=== PATIENT | male | born 1965 | race Caucasian/White ===

== ENCOUNTER 2023-07-13 11:35 | Day surgery (SDC) | payer MEDICARE, MEDICAID ==
[2023-07-10 10:44] LABS: BASOPHILS % (AUTO) 0.9 % (0-1); HEMATOCRIT 41.2 % (42.0-52.0); HEMOGLOBIN 13.6 g/dl (14.0-17.9); LYMPHOCYTES # (AUTO) 1.7 X10'3 (1.1-4.8); LYMPHOCYTES % (AUTO) 39.7 % (21-51); MEAN CORPUSCULAR HEMOGLOBIN 29.9 PG (27.0-31.0); MEAN CORPUSCULAR VOLUME 90.6 FL (78-98); MEAN PLATELET VOLUME 7.8 FL (7.4-10.4); MONOCYTES # (AUTO) 0.3 X10'3 (0-0.9); MONOCYTES % (AUTO) 6.8 % (2-12); NEUTROPHILS # (AUTO) 2.2 X10'3 (1.8-7.7); NEUTROPHILS % (AUTO) 51.6 % (42-75); PLATELET COUNT 210 X10'3 (140-440); RED BLOOD COUNT 4.54 X10'6 (4.70-6.10); RED CELL DISTRIBUTION WIDTH 14.5 % (11.5-14.5); WHITE BLOOD COUNT 4.4 X10'3 (4.5-11.0)
[2023-07-10 10:49] LABS: APTT 26 SECONDS (22-32)
[2023-07-10 10:55] LABS: ALBUMIN 4.4 G/DL (3.4-5.0); ANION GAP 9 (8-16); BLOOD UREA NITROGEN 16 MG/DL (7-18); BUN/CREATININE RATIO 16.3 (10.0-20.0); CHLORIDE 104 MMOL/L (99-107); CHOL/HDL RATIO 2.4 (0.00-4.99); CHOLESTEROL 142 MG/DL (0-200); CREATININE 0.98 MG/DL (0.60-1.10); GLUCOSE 99 MG/DL (70-104); HDL CHOLESTEROL 58 MG/DL (35-60); LDL CHOLESTEROL 66 MG/DL (50-100); POTASSIUM 4.8 MMOL/L (3.5-5.1); SODIUM 141 MMOL/L (135-145); TOTAL CARBON DIOXIDE 27.9 MMOL/L (24-32); TRIGLYCERIDES 57 MG/DL (20-135); eGFR 78 ML/MIN
[2023-07-10 11:02] LABS: INR 0.9 INR
[2023-07-13] VITALS (14 sets, daily range): BP systolic 102–141; BP diastolic 42–103; PULSE 52–100; RESP 10–24; TEMP 98.4; O2SAT 93–100
[~2023-07-13] VITALS: Ht 182.9 cm; Wt 90.4 kg
[~2023-07-13 11:35] MED LIST: NO HOME MEDS
[2023-07-13] MEDS ORDERED: LISI10TA27 PO (12:55)
[2023-07-13] MEDS ORDERED: CHOL20002 PO (12:55)
[2023-07-13] MEDS ORDERED: ATOR10TA70 PO (12:55)
[2023-07-13] MEDS ORDERED: DIAZ5TAB5 PO (12:55)
[2023-07-13] MEDS ORDERED: SILD50TA53 PO (12:55)
[2023-07-13] MEDS: LORazepam 0.5 MG tablet PO PRN (13:41)
[2023-07-13] MEDS: diphenhydrAMINE 25mg capsule PO PRN (13:41)
[2023-07-13] MEDS: normal saline 1,000 ML IV SCH (13:43)
[2023-07-13] MEDS ORDERED: LIDOcaine 1% (10mg/ml) 2ml vial ONE (15:01)
[2023-07-13] MEDS ORDERED: verapamil 2.5 mg/ml inj IV ONE (15:01)
[2023-07-13] MEDS ORDERED: midazolam 1 mg/ML 2ml injection ONE (15:01)
[2023-07-13] MEDS ORDERED: iohexol 350MG/ML 100ml bottle IV ONE ×3 (15:01→16:25)
[2023-07-13] MEDS ORDERED: heparin 1,000unit/ml 10ml vial 10 ML ONE ×2 (15:01→16:17)
[2023-07-13] MEDS ORDERED: fentaNYL/PF 50MCG/1 ML 2ML syringe ONE ×2 (15:01→16:19)
[2023-07-13] MEDS ORDERED: nitroGLYCERIN 500mcg/5mL D5W 5 ML IV ONE (15:03)
[2023-07-13] MEDS ORDERED: aspirin 325mg tablet ONE (16:33)
[2023-07-13] MEDS ORDERED: clopidogrel 300mg tablet ONE (16:33)
[2023-07-13] MEDS ORDERED: HYDROcodone/acetaminophen 10/325mg tab PO PRN (17:25)
[2023-07-13] MEDS ORDERED: HYDROcodone/acetaminophen 5mg/325mg tablet PO PRN (17:25)
== END 2023-07-13 18:25 | disposition home or self-care (01) ==
LOC: SSTAY O 11:35
PROVIDERS: ATTEND Student in an Organized Health Care Education/Training Program
DX: I25.118 Atherosclerotic heart disease of native coronary artery with other forms of angina pectoris (principal); I10 Essential (primary) hypertension; E78.00 Pure hypercholesterolemia, unspecified; F41.9 Anxiety disorder, unspecified; F32.A Depression, unspecified; I34.0 Nonrheumatic mitral (valve) insufficiency; Z79.899 Other long term (current) drug therapy
CPT/HCPCS: 36415; 80048; 80061; 85025; 85610; 85730; 93005; 93458; 93571; 99152; 99153; C1874; C9600; J1644; J2250; J3010; J3490; J7030; Q0163; Q9967; A6258; A6449; C1725; C1751; C1769; C1894; C9601